=== PATIENT | female | born 1980 | race Two or more races ===

== ENCOUNTER 2024-12-14 09:18 | Emergency (ER) | payer OTHER ==
[~2024-12-14] VITALS: Ht 182.9 cm; Wt 72.6 kg
[2024-12-14] MEDS ORDERED: ARMOUR THYROID60 M1 PO (09:46)
[2024-12-14] MEDS ORDERED: PROMETRIUM200 MG PO (09:47)
[2024-12-14] MEDS ORDERED: PULMOZYME1 MG/1 ML IH (09:47)
[2024-12-14] MEDS ORDERED: 0.9 % SODIUM CHLORIDE 1,000 ML IV STA (10:14)
[2024-12-14] MEDS ORDERED: ONDANSETRON HCL 2 MG/ML VIAL IV STA (10:14)
[2024-12-14] MEDS ORDERED: FAMOTIDINE/PF 20 MG/2 ML VIAL IV STA (10:14)
[2024-12-14] MEDS ORDERED: METOCLOPRAMIDE HCL 10 MG in DEXTROSE 5 % IN WATER 50 ML IV ONE (10:15)
[2024-12-14] MEDS ORDERED: METOCLOPRAMIDE HCL 5 MG/ML VIAL ONE (11:02)
[2024-12-14] MEDS ORDERED: ONDANSETRON HCL 2 MG/ML VIAL ONE (11:02)
[2024-12-14] MEDS ORDERED: FAMOTIDINE/PF 20 MG/2 ML VIAL ONE (11:03)
[2024-12-14] MEDS ORDERED: MORPHINE SULFATE 2 MG/ML SYRINGE IV STA (11:52)
[2024-12-14 12:11] LABS: BASO % 0.2 % (0.1-1.2); EOS # 0.03 (0.04-0.54); EOS % 0.3 % (0.7-7.0); LYMPH # 2.54 (1.18-3.74); LYMPH % 26.3 % (19.3-53.1); MEAN PLATELET VOLUME 11.10 fl (9.4-12.4); MONO # 0.59 (0.24-0.82); MONO % 6.1 % (4.7-12.5); NEUT # 6.45 (1.56-6.13); NEUT % 66.7 % (34.0-71.1); RED CELL DISTRIBUTION WIDTH 12.1 % (11.6-14.4)
[2024-12-14 12:32] LABS: INR 1.01
[2024-12-14 12:38] LABS: ALT/SGPT 25.0 U/L (12-78); AST/SGOT 20.0 U/L (15-37); BILIRUBIN TOTAL 0.68 mg/dL (0.3-1.2); BILIRUBIN,CONJUGATED 0.18 mg/dL (0.0-0.2); BUN CREA RATIO 13.0 (7.0-25.0); CREATININE SERUM 0.68 mg/dL (0.55-1.02); GFR 93.99; GLUCOSE FASTING 87.0 mg/dL (65-100); OSMOLALITY SERUM 277.0 MOSM/KG (275-295)
[2024-12-14] MEDS ORDERED: PEPCID AC20 MG PO (16:32)
[2024-12-14] MEDS ORDERED: NEXIUM20 M1 PO (16:32)
[2024-12-14 16:36] LABS: URINE APPEARANCE Clear; URINE BILIRRUBIN Negative (NEGATIVE); URINE BLOOD Negative; URINE COLOR Yellow; URINE GLUCOSE Negative (NEGATIVE); URINE KETONE 15 (NEGATIVE); URINE LEUKOCYTE Negative; URINE NITRATE Negative; URINE PROTEIN Negative (NEGATIVE); URINE UROBILINOGEN 0.2 E.U./dl
[2024-12-14 16:43] LABS: URINE BACTERIA 506.4 uL (0.0-1933); URINE EPITHELIAL CELLS 27.8 uL (0.0-38.8); URINE WBC 22.4 uL (0.0-23.2)
[2024-12-14 16:47] LABS: URINE CAST 0.29 uL (0.0-1.40); URINE RBC 1.3 uL (0.0-20.8)
== END 2024-12-14 18:47 | disposition home or self-care (01) ==
LOC: ER 09:18
PROVIDERS: General Practice
DX: R10.13 Epigastric pain (principal); K29.70 Gastritis, unspecified, without bleeding; N83.291 Other ovarian cyst, right side